=== PATIENT | female | born 1990 | race Caucasian/White ===

== ENCOUNTER → 2022-04-24 | Emergency (ER) | payer OTHER ==
[~2022-04-24] VITALS: Ht 172.7 cm; Wt 72.6 kg
[~2022-04-24] MED LIST: ACETAMINOPHEN 325 MG TABLET PO ONE; ACETAMINOPHEN ES 500 MG TABLET ONE
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
[2022-04-24 18:57] VITALS: BP 122/101
== END | disposition home or self-care (01) ==
LOC: ER 17:40
DX: F41.0 Panic disorder [episodic paroxysmal anxiety] (principal); I10 Essential (primary) hypertension; F41.9 Anxiety disorder, unspecified; Z60.2 Problems related to living alone